=== PATIENT | female | born 1970 | race Caucasian/White ===

== ENCOUNTER 2020-01-11 14:27 | Outpatient (CLI) | payer BC, SELFPAY ==
[2020-01-11 14:52] LABS: Basophils Percent Auto 0.7 % (0.2-1.2); Eosinophils Absolute Auto 0.1 K/mm3 (0-0.3); Eosinophils Percent Auto 1.8 % (0-4.4); Hematocrit 36.7 % (37.0-47.0); Immature Granulocyte Absolute 0.01 K/mm3 (0.00-0.031); Immature Granulocyte Percent A 0.2 % (0-0.5); Lymphocytes Absolute Auto 1.72 K/mm3 (0.9-3.2); Mean Corpuscular HGB Conc 32.7 g/dl (32-36); Mean Corpuscular Hemoglobin 29.6 pg (26-34); Mean Corpuscular Volume 90.6 fl (80-100); Mean Platelet Volume 10.1 fl (7.4-10.4); Monocytes Absolute Auto 0.6 K/mm3 (0.1-0.6); Neutrophils Absolute Auto 3.7 K/mm3 (1.3-6.7); Neutrophils Percent Auto 60.3 % (45.5-73.1); Platelet Count Result 233 k/mm3 (150-375); Red Blood Count 4.05 M/mm3 (4.2-5.4); Red Cell Distribution Width 13.2 % (11.5-14.5); White Blood Count 6.1 K/mm3 (4.5-10.0)
== END 2020-01-11 14:28 | disposition home or self-care (01) ==
LOC: ANHSURGERY 14:30
PROVIDERS: PCP Family Medicine Sports Medicine; Visit Provider Obstetrics & Gynecology
DX: R10.2 Pelvic and perineal pain (principal); Z01.812 Encounter for preprocedural laboratory examination
CPT/HCPCS: 36415; 85025; 86850; 86900; 86901

== ENCOUNTER 2020-01-17 00:51 | Outpatient (CLI) | payer BC, SELFPAY ==
[2020-01-17 18:19] LABS: SARS-CoV-2 RNA PCR Negative
== END 2020-01-17 00:52 | disposition home or self-care (01) ==
LOC: ANHCOVIDDT 00:51
PROVIDERS: PCP Family Medicine Sports Medicine; Visit Provider Obstetrics & Gynecology
DX: Z01.812 Encounter for preprocedural laboratory examination (principal); Z20.828 Contact with and (suspected) exposure to other viral communicable diseases
CPT/HCPCS: 87635; C9803; U0003

== ENCOUNTER 2020-01-19 02:09 | Day surgery (SDC) | payer BC, SELFPAY ==
[2020-01-09 16:52] VITALS: BMI 25.2
--- NOTE | 2020-01-17 08:07 | PM.IMHP ---
H&P: HPI History of Present Illness Date/Time: 01/17/20 08:07 Chief complaint: Enlarged Uterus, Pelvic Pain/ Irregular Bleeding Narrative: Allison Pang is a 49 year old female 4 para 2 is admitted for robotic assisted total vaginal hysterectomy and bilateral salpingo-oophorectomy. She has had excessive heavy bleeding. Had negative findings on ultrasound back short markedly enlarged uterus with fibroids. Risks and benefits reviewed including and expression , aspiration pneumonia, bleeding, transfusion, perforation to bowel, bladder, ureters, or other internal organs with need for laparotomy. She voiced understanding. She read the [employer] handout entitled hysterectomy as well as the de Haritha handout. She asked to proceed Review of Systems Review of Systems: All systems reviewed & are unremarkable except as noted in HPI and below PMFSH Social History Social History Smoking status: Never smoker Alcohol intake: current Drinks per week: 2 Substance use: never Spiritual care concerns: No Meds Home Medications and Allergies Home Medications Medication Instructions Recorded Confirmed Type No Home Medications 01/09/20 01/09/20 History Allergies Allergy/AdvReac Type Severity Reaction Status Date / Time lactose Allergy Intermediate GI ISSUE'S Verified 01/09/20 16:29 latex Allergy Intermediate RASH Verified 01/09/20 16:29 gluten Allergy Unknown GI ISSUE'S Verified 01/09/20 16:29 Exam Const: General: no acute distress Eyes: General: appearance normal, both eyes and all related structures Neck: Neck: supple and no JVD Thyroid: thyroid normal Resp: Effort & Inspection: normal respiratory effort Auscultation: clear to auscultation bilaterally Cardio: Rate: regular rate Rhythm: regular rhythm GI: Inspection: non-distended GI Palp: Yes Soft to palpation, No Tenderness to palpation present (GI) and No Guarding due to palpation present (GI) Auscultation: normal bowel sounds : General: Yes bladder normal to inspection External Female Exam: normal external appearance Speculum Exam - Vagina: normal appearance of the vagina Speculum Exam - Cervix: normal appearance of the cervix Bimanual exam- vagina & uterus: enlarged Bimanual Exam- Adnexa, other: no masses OB/external & speculum: No vaginal bleeding Skin: General skin exam: no rashes or lesions noted Extrem: General: normal to inspection and no edema Psych: Mental Status: mental status grossly normal Affect: normal affect Assessment and Plan Additional Plan impression: Enlarged uterus/ pelvic pain/ bleeding refractory to medical therapy Plan: Robotic total vaginal hysterectomy and bilateral salpingectomy
--- NOTE | 2020-01-18 12:03 | WPDANESEPPF ---
Anes - Initial Pre Proc Eval Procedure: Operation Date: 01/19/20 07:30 Proposed Procedures p Robotic Assisted Total Vaginal Hysterectomy - Guerrero Hopkins MD Date/Time: 01/18/20 12:03 Surgeon: Guerrero Hopkins MD Pre Op Diagnosis: Enlarged Uterus, Pelvic Pain/ Irregular Bleeding Patient Data Age: 49 Gender: F Height: 1.6 m Weight: 64.54 kg Allergies Allergy/AdvReac Type Severity Reaction Status Date / Time lactose Allergy Intermediate GI ISSUE Verified 01/19/20 06:38 latex Allergy Intermediate RASH Verified 01/19/20 06:38 gluten Allergy Unknown GI ISSUE Verified 01/19/20 06:38 Home Medications Medication Instructions Recorded Confirmed Type hydrocodone-acetaminophen [[place]] 1 tablet PO Q4H PRN #30 tablet 01/19/20 Rx Patient hx anesthesia problems: other (prolonged fogginess, amnesia after surgeries typically) Family hx anesthesia problems: none PMFSH Past Medical History Medical History (Updated 01/19/20 @ 07:03 by Richar Austin DO) IBS (irritable bowel syndrome) Renal stones Surgical History Surgical History (Updated 01/18/20 @ 12:03 by Richar Austin DO) History of cholecystectomy Social History Social History Smoking status: Never smoker Alcohol intake: current Drinks per week: 2 Alcohol use details: wine half glasses Substance use: never Living arrangements: with family Spiritual care concerns: No Anes - Eval Final PreProcedure Day of Procedure 01/18/20 12:03 Patient weight: overweight Heart: regular rate and rhythm Lungs: clear to auscultation and normal air movement Airway: Mallampati scale class II Neurological: alert and oriented Last oral intake: >/= 8 hours ASA classification: II Emergent: no Anesthetic plan: proceed Anesthesia type and monitoring: general ETT and standard monitoring Informed Consent: The patient's anesthetic plan and its attendant risks and benefits were discussed with the patient/family/POA. Questions were solicited and answers provided to the satisfaction of the patient/family/POA.
[2020-01-19] VITALS (16 sets, daily range): BP systolic 91–121; BP diastolic 50–76; PULSE 54–88; RESP 12–18; TEMP 36.1–37.1; O2SAT 92–100
--- NOTE | 2020-01-19 06:20 | WPDHPUPDATE1 ---
History and Physical Update Update Date/Time: 01/19/20 06:20 History and Physical has been reviewed, including an updated exam of the patient. There are NO changes in the patient's condition. Risks, benefits, and alternatives have been discussed and questions answered. Patient agrees to proceed with procedure.
[2020-01-19] MEDS: ACETAMINOPHEN 500 MG TABLET 1000 MG PO (06:34)
--- NOTE | 2020-01-19 06:59 | WPDHPUPDATE1 ---
History and Physical Update Update Date/Time: 01/19/20 06:59 History and Physical has been reviewed, including an updated exam of the patient. There are NO changes in the patient's condition. Risks, benefits, and alternatives have been discussed and questions answered. Patient agrees to proceed with procedure. patient requests that tubes remain
[2020-01-19] MEDS: LACTATED RINGERS 1,000 ML 30 ML IV CONT ×2 (07:10→08:46)
[2020-01-19] MEDS: KETOROLAC 15 MG/ML VIAL (*BKC) IV PUSH (07:12)
[2020-01-19] MEDS: ceFAZolin 2 GM/D5W 50 ML 2 GM/50 ML BAG IVPB (07:20)
--- NOTE | 2020-01-19 08:30 | P.OP_ITS ---
Procedure Note - Detailed Date of procedure: 01/19/20 Pre-op diagnosis: Enlarged Uterus, Pelvic Pain/ Irregular Bleeding Surgeon: Guerrero Hopkins MD Postop diagnosis enlarged uterus/ pelvic pain / irregular bleeding refractory to medical therapy Procedure: Robotic total vaginal hysterectomy EBL: 50cc Anesthesia: General endotracheal Complications: None Findings: Markedly enlarged uterus normal-appearing ovaries and tubes. The patient was vehemently that she wanted to keep her tubes Description of procedure: The patient was prepped draped in the normal sterile fashion and placed in the dorsal lithotomy position. Under excellent general endotracheal anesthesia weighted speculum was placed in posterior fornix of vagina. Anterior lip of the cervix was grasped with single-tooth tenaculum. The uterus sounded to 12cm. Serial dilatation with fragmented dilators was performed followed by passage of the 8. SUZI and the 3. Cold cup. Next the 16 [place] catheter was placed the and drained clear urine. The other instruments were removed. The gloves were changed. Supraumbilical incision was made and the Veress needle was passed in the abdomen. The abdomen was filled with CO2 gas [id number]. The 8mm trocar was advanced directly into the abdomen. Downside visualized and no injury seen. Gas was reattached. The patient was placed in Trendelenburg. Left and right lateral quadrant incisions were made in the 8mm trocars advanced under direct visualization assuring no injury. A right upper quadrant incision was made in the 10mm trocar was advanced in the abdomen under direct visualization again assuring no injury. The robot was docked. Attention was turned to the console. The left round ligament was grasped, burned, cut. Anteriorly the bladder was adherent to the uterine fundus and this was serially dissected and the bladder reflected caudally from the uterus and cervix to the opposite round ligament was clamped, burned, cut. Next the utero- ovarian ligament on the left was skeletonized conserve the left ovary and tube as per the patient's wishes. This was clamped, burned, cut and brought to the level of the previously cut round ligament. Next the right utero-ovarian ligament was clamped, burned, cut conserving the right ovary and tube. This was brought to the level of previously cut round ligament. The left cardinal and broad ligaments were then serially skeletonized and clamped, burned, cut and brought down to the level of the uterine vessels on the left. These were large and tortuous as expected from such a large uterus. These were sent individually clamped, burned, cut. In like fashion the cardinal and broad ligaments on the right were serially skeletonized. These were clamped, burned, cut and brought down to the level of the uterine vessels on the right which again were large tortuous these were individually clamped, burned, cut. A colpotomy incision was made in the cervix and uterus removed through the vagina. The vagina was then closed with continuous running 0V lock from lateral edge to lateral edge and back to the midline. Irrigation was undertaken until clear and hematuria was placed on the raw surface area. Blood loss was estimated at50cc the robot was undocked. The gas removed from the abdomen. The incisions closed with 4 [place] cryl glue. The instruments removed from the vagina. The patient was awakened. All sponge, needle, instrument counts were correct. There were no immediate complications
[2020-01-19] MEDS: ONDANSETRON INJ 4 MG/2 ML VIAL IV PUSH (09:56)
--- NOTE | 2020-01-19 10:10 | PC.NURSE ---
This patient, Allison Pang, was received from PACU on 01/19/20 at 1010. Patient/family oriented to unit policies and routines
[2020-01-19] MEDS: DEXTROSE 5%/LACTATED RINGERS 1,000 ML 125 ML IV CONT ×2 (10:29→18:57)
[2020-01-19] MEDS: PROMETHAZINE HCL 25 MG/ML AMPUL 12.5 MG IV PUSH (11:20)
[2020-01-19] MEDS: ENOXAPARIN 40 MG/0.4 ML SYRINGE SUB-Q (17:46)
[2020-01-19] MEDS: KETOROLAC 30 MG/ML VIAL (*BKC) IV PUSH (19:14)
[2020-01-19] MEDS: SIMETHICONE 80 MG TAB.CHEW PO (20:44)
[2020-01-20] MEDS: SIMETHICONE 80 MG TAB.CHEW PO ×2 (03:06→09:32)
[2020-01-20 03:33] VITALS: BP 84/54; PULSE 79; RESP 16; TEMP 36.8; O2SAT 98
[2020-01-20 06:06] LABS: Basophils Percent Auto 0.3 % (0.2-1.2); Eosinophils Percent Auto 0.1 % (0-4.4); Hematocrit 31.4 % (37.0-47.0); Hemoglobin 10.3 g/dL (12.0-15.0); Immature Granulocyte Absolute 0.04 K/mm3 (0.00-0.031); Immature Granulocyte Percent A 0.4 % (0-0.5); Lymphocytes Absolute Auto 1.23 K/mm3 (0.9-3.2); Mean Corpuscular HGB Conc 32.8 g/dl (32-36); Mean Corpuscular Volume 88.5 fl (80-100); Monocytes Absolute Auto 0.9 K/mm3 (0.1-0.6); Monocytes Percent Auto 9.3 % (2.6-8.5); Neutrophils Absolute Auto 7.3 K/mm3 (1.3-6.7); Neutrophils Percent Auto 76.9 % (45.5-73.1); Platelet Count Result 186 k/mm3 (150-375); Red Blood Count 3.55 M/mm3 (4.2-5.4); White Blood Count 9.5 K/mm3 (4.5-10.0)
--- NOTE | 2020-01-20 07:39 | WPDANESPN ---
Anes - Prog Note Post-Op Date/Time: 01/20/20 07:39 Cardiovascular status: normal Respiratory status: normal Airway patency: baseline Mental status: baseline Post-Op hydration status: normal Vital Signs: Last Vital Signs Temp 36.8 C 01/20/20 03:33 Pulse 79 01/20/20 03:33 Resp 16 01/20/20 03:33 BP 84/54 L 01/20/20 03:33 Pulse Ox 98 01/20/20 03:33 I/O: Intake & Output 01/19/20 01/19/20 01/20/20 15:59 23:59 07:59 Intake Total 800 1120 990 Output Total 511 670 0290 Balance 245 005 -1930 Laboratory Tests 01/20/20 04:38 01/20/20 04:38 WBC 9.5 RBC 3.55 L Hgb 10.3 L Hct 31.4 L MCV 88.5 MCH 29.0 MCHC 32.8 RDW 13.0 Plt Count 186 MPV 11.0 H Immature Gran % (Auto) 0.4 Neut % (Auto) 76.9 H Lymph % (Auto) 13.0 L [place] % (Auto) 9.3 H Eos % (Auto) 0.1 Baso % (Auto) 0.3 Lymph # (Auto) 1.23 [place] # (Auto) 0.9 H Eos # (Auto) 0.0 Baso # (Auto) 0.0 Abs Immat Gran (auto) 0.04 H Absolute Neuts (auto) 7.3 H Absolute Nucleated RBC 0.0 Nucleated RBC % 0.0 Post-procedural complaints: none Patient Feedback: Patient satisfied with anesthetic care.
[2020-01-20 08:50] VITALS: BP 102/67; PULSE 77; RESP 18; TEMP 37; O2SAT 98
[2020-01-20] MEDS: DOCUSATE SODIUM 100 MG CAPSULE PO (09:32)
[2020-01-20] MEDS: IBUPROFEN 600 MG TABLET PO (09:34)
--- NOTE | 2020-01-20 12:19 | PM.GYNPNOP ---
ELASTIC YARN TWISTER - A/P Postoperative Procedures: Procedures Operation Date: 01/19/20 07:30 Actual Procedures Side Surgeon p Robotic Assisted Total Vaginal Hysterectomy Not Applicable Guerrero Hopkins MD Time Spent With Patient Time with patient: 15 - 25 minutes ELASTIC YARN TWISTER- PN:Subj Post-Op Subjective Date/time seen: 01/20/20 12:19 Interval history: Pain OK. Tolerating diet. Voiding. Would like to go home. Exam Narrative: Exam Narrative: AVSS I/O OK ABD soft, nontender. Incisions c/d/i. EXT nontender ELASTIC YARN TWISTER - PN: Obj Data Vital Signs Vital Signs: Vital Signs - 24 hr 01/19/20 13:00 01/19/20 16:00 01/19/20 20:30 Temperature 37.1 C 36.9 C Pulse Rate 66 67 59 L Respiratory Rate 18 18 18 Blood Pressure 121/70 102/67 98/56 L Pulse Oximetry 100 98 98 01/19/20 23:15 01/20/20 03:33 01/20/20 08:50 Temperature 37.0 C 36.8 C 37.0 C Pulse Rate 68 79 77 Respiratory Rate 18 16 18 Blood Pressure 98/59 L 84/54 L 102/67 Pulse Oximetry 99 98 98 Intake/Output Intake/Output: Intake & Output 01/17/20 01/18/20 01/19/20 01/20/20 23:59 23:59 23:59 23:59 Intake Total 1970 990 Output Total 880 2635 Balance 1090 -1645 Meds/Results Medications: Active Medications Generic Name Dose Route Start Last Admin Trade Name Freq PRN Reason Stop Dose Admin Hydrocodone Bitart/Acetaminophen 1 tab 01/19/20 10:02 01/20/20 09:33 [place] 5-325 Mg PO 1 tab Q3H PRN Administration Pain Rated 5 or Less Hydrocodone Bitart/Acetaminophen 1 tab 01/19/20 10:02 [place] 10-325 Mg PO Q3H PRN Pain Rated 6 or Greater Docusate Sodium 100 mg 01/19/20 10:02 01/20/20 09:32 Colace Capsule PO 100 mg BID DANII Administration Enoxaparin Sodium 40 mg 01/19/20 10:02 01/19/20 17:46 Lovenox SUB-Q 40 mg DAILY DANII Administration Dextrose/Lactated Ringer's 1,000 mls @ 125 mls/hr 01/19/20 10:02 01/19/20 18:57 Dextrose 5%/Lactated Ringers IV CONT 125 mls/hr .Q8H DANII Administration Ibuprofen 600 mg 01/19/20 10:02 01/20/20 09:34 Motrin PO 600 mg Q6H PRN Administration Cramping Ketorolac Tromethamine 30 mg 01/19/20 10:02 01/19/20 19:14 Toradol Inj IV PUSH 01/24/20 10:03 30 mg Q6H PRN Administration Pain Rated 4-6 Morphine Sulfate 4 mg 01/19/20 10:02 Morphine Sulfate Inj IV PUSH Q4H PRN Severe breakthrough pain Naloxone HCl 0.1 mg 01/19/20 10:02 Narcan IV PUSH Q2M PRN Respiratory rate less than 10 Ondansetron HCl 4 mg 01/19/20 10:02 Zofran Inj IV PUSH Q6H PRN Nausea And Vomiting Promethazine HCl 12.5 mg 01/19/20 10:45 01/19/20 11:20 Phenergan Inj IV PUSH 12.5 mg Q4H PRN Administration N/V UNRELIEVED /W ZOFRAN Simethicone 80 mg 01/19/20 10:02 01/20/20 09:32 Mylicon PO 80 mg Q2H PRN Administration Gas Labs CBC & Chem 7: 01/20/20 04:38 Labs: Laboratory Results - last 24 hr 01/20/20 04:38 WBC 9.5 RBC 3.55 L Hgb 10.3 L Hct 31.4 L MCV 88.5 MCH 29.0 MCHC 32.8 RDW 13.0 Plt Count 186 MPV 11.0 H Immature Gran % (Auto) 0.4 Neut % (Auto) 76.9 H Lymph % (Auto) 13.0 L [place] % (Auto) 9.3 H Eos % (Auto) 0.1 Baso % (Auto) 0.3 Lymph # (Auto) 1.23 [place] # (Auto) 0.9 H Eos # (Auto) 0.0 Baso # (Auto) 0.0 Abs Immat Gran (auto) 0.04 H Absolute Neuts (auto) 7.3 H Absolute Nucleated RBC 0.0 Nucleated RBC % 0.0
--- NOTE | 2020-01-20 12:20 | P.DS_ITS ---
DS: Admitting Diagnosis Admitting Diagnosis Admitting Diagnosis: Enlarged Uterus, Pelvic Pain/ Irregular Bleeding DS: Discharge Diagnosis Discharge Diagnosis (1) Fibroid uterus: Code(s): D25.9 - Leiomyoma of uterus, unspecified Status: Acute DS: Data Data Completed and Pending Pending studies at discharge: Pending at discharge 01/19/20 07:56 Surgical [PTH] Routine Labs on day of discharge: Labs from last 24 hours 01/20/20 04:38 WBC 9.5 RBC 3.55 L Hgb 10.3 L Hct 31.4 L MCV 88.5 MCH 29.0 MCHC 32.8 RDW 13.0 Plt Count 186 MPV 11.0 H Immature Gran % (Auto) 0.4 Neut % (Auto) 76.9 H Lymph % (Auto) 13.0 L [place] % (Auto) 9.3 H Eos % (Auto) 0.1 Baso % (Auto) 0.3 Lymph # (Auto) 1.23 [place] # (Auto) 0.9 H Eos # (Auto) 0.0 Baso # (Auto) 0.0 Abs Immat Gran (auto) 0.04 H Absolute Neuts (auto) 7.3 H Absolute Nucleated RBC 0.0 Nucleated RBC % 0.0 Discharge Plan Discharge Patient Disposition: Home, Self-Care Discharge Instructions: Call or return if temperature above 100.4? F, increased abdominal pain, increased vaginal bleeding or any new problems. Patient Instructions: Vaginal Hysterectomy (DC) Stand Alone Forms: General Discharge Instructions Follow-up/Referrals: Guerrero Hopkins MD [Physician] - (2 weeks) Discharge Medications: New hydrocodone-acetaminophen [[place]] 5-325 mg tablet 1 tablet PO Q4H PRN (Reason: pain) Qty: 30 RF: 0 Primary Care Provider: Eloy,Mariya Gregory Attending physician on admission: Guerrero Hopkins
== END 2020-01-20 13:47 | disposition home or self-care (01) ==
LOC: ANHSURGERY 06:21 → ANHOB2 10:15
PROVIDERS: PCP Family Medicine Sports Medicine; Visit Provider Obstetrics & Gynecology
PROC: (CPT 58550; principal; 2020-01-19 07:30)
DX: N92.1 Excessive and frequent menstruation with irregular cycle (principal); R10.2 Pelvic and perineal pain; N72 Inflammatory disease of cervix uteri; N80.0 Endometriosis of uterus; D25.9 Leiomyoma of uterus, unspecified; N73.6 Female pelvic peritoneal adhesions (postinfective)
CPT/HCPCS: 58550; S2900; 36415; 85025; 88307; 88342; 99199; A9270; J0690; J1100; J1650; J1885; J2250; J2405; J2550; J2704; J3010; J7030; J7120; J7121